=== PATIENT | male | born 1940 | race Caucasian/White ===

== ENCOUNTER 2021-02-26 13:34 | Outpatient (CLI) | payer MEDICARE ==
[2021-02-26] MEDS ORDERED: PIOG30TA23 PO (14:41)
[2021-02-26] MEDS ORDERED: BENA5TAB3 PO (14:41)
[2021-02-26] MEDS ORDERED: LATA2.5D4 EACHEYE (14:41)
[2021-02-26] MEDS ORDERED: FLAX10004 PO (14:41)
[2021-02-26] MEDS ORDERED: DOCU-131 PO (14:41)
[2021-02-26] MEDS ORDERED: INSU100V13 SC (14:41)
[2021-02-26] MEDS ORDERED: DULA1.5P INJ (14:41)
[2021-02-26] MEDS ORDERED: ASPI81TA45 PO (14:41)
[2021-02-26] MEDS ORDERED: MULT-717 PO (14:41)
[2021-02-26] MEDS ORDERED: VIT1CAPS42 PO (14:41)
[2021-02-26] MEDS ORDERED: ROSU20TA2 PO (14:41)
[2021-02-26] MEDS ORDERED: CHOL10003 PO (14:41)
[2021-02-26] MEDS ORDERED: REPA0.5T6 PO (14:41)
[2021-02-26] MEDS ORDERED: OMEG1CAP23 PO (14:41)
[2021-02-26] MEDS ORDERED: DORZ10DR21 EACHEYE (14:41)
[2021-02-26] MEDS ORDERED: BENF150C PO (14:41)
[2021-02-26] MEDS ORDERED: VITA1TAB19 PO (14:41)
[2021-02-26 14:51] LABS: BASOPHILS % (AUTO) 1 % (0-1); EOSINOPHILS % (AUTO) 5 % (1-7); LYMPHOCYTES % (AUTO) 20 % (22-44); MEAN CORPUSCULAR HEMOGLOBIN 32.2 pg (27.5-34.5); MEAN CORPUSCULAR HGB CONC 33.5 g/dL (33.2-36.2); MEAN PLATELET VOLUME 10.4 fL (7.4-10.4); MONOCYTES % (AUTO) 11 % (2-9); NEUTROPHILS % (AUTO) 63 % (42-75); PLATELET COUNT 168 x10^3/uL (130-400); RED BLOOD COUNT 4.33 x10^6/uL (4.38-5.82); RED CELL DISTRIBUTION WIDTH 14.3 % (9.4-14.8)
[2021-02-26 15:03] LABS: ALANINE AMINOTRANSFERASE 44 U/L (12-78); ALBUMIN 3.3 g/dL (3.4-5.0); ANION GAP 5 mmol/L (5-15); CHLORIDE 107 mmol/L (98-107); CREATININE 1.28 mg/dL (0.7-1.3)
[2021-02-26 15:05] LABS: ALKALINE PHOSPHATASE 73 U/L (45-117); BILIRUBIN,TOTAL 0.6 mg/dL (0.2-1.0)
== END 2021-02-26 23:59 | disposition home or self-care (01) ==
LOC: STAR 13:34
PROVIDERS: ATTEND Surgery
DX: Z01.818 Encounter for other preprocedural examination (principal); Z20.822 Contact with and (suspected) exposure to COVID-19; I44.0 Atrioventricular block, first degree; I49.3 Ventricular premature depolarization; I44.4 Left anterior fascicular block
CPT/HCPCS: 71046; 80053; 85025; 87635; 93005

== ENCOUNTER 2021-03-03 06:59 | Inpatient (IN) | payer MEDICARE ==
[~2021-03-03] VITALS: Ht 175.3 cm; Wt 105.0 kg
[~2021-03-03 06:59] MED LIST: ASPI81TA45 PO; BENA5TAB3 PO; BENF150C PO; CHOL10003 PO; DOCU-131 PO; DORZ10DR21 EACHEYE; DULA1.5P INJ; FLAX10004 PO; INSU100V13 SC; LATA2.5D4 EACHEYE; MULT-717 PO; OMEG1CAP23 PO; PIOG30TA23 PO; REPA0.5T6 PO; ROSU20TA2 PO; VIT1CAPS42 PO; VITA1TAB19 PO
[2021-03-03] MEDS ORDERED: THROMBIN 20,000 UNIT VIAL TP ONE (07:02)
[2021-03-03] MEDS ORDERED: HEPARIN 1,000 UNITS/ML, 10ML ONE (07:02)
[2021-03-03] MEDS ORDERED: PROTAMINE SULFATE 10 MG/ML, 5ML ONE (07:02)
[2021-03-03] MEDS ORDERED: CHLORHEXIDINE 15 ML UDC ONE (07:41)
[2021-03-03] MEDS ORDERED: CHLORHEXIDINE 15 ML UDC PO ONE (08:00)
[2021-03-03] MEDS ORDERED: SODIUM CHLORIDE 0.9% 1,000 ML IV SCH (08:00)
[2021-03-03] MEDS ORDERED: FENTANYL PF 250 MCG/5ML ONE (08:38)
[2021-03-03] MEDS ORDERED: HEPARIN 1,000 UNITS/ML, 10ML IV ONE (09:07)
[2021-03-03] MEDS ORDERED: EPHEDRINE 50 MG/ML, 1ML IVPush PRN (09:30)
[2021-03-03] MEDS ORDERED: ACETAMINOPHEN 325 MG TABLET PO PRN (09:30)
[2021-03-03] MEDS ORDERED: EPHEDRINE 50 MG/ML, 1ML IM PRN (09:30)
[2021-03-03] MEDS ORDERED: morphine SULFATE 10 MG/ML, 1ML IVPush PRN (09:30)
[2021-03-03] MEDS ORDERED: ONDANSETRON 2MG/ML, 2ML IVPush PRN ×2 (09:30→12:30)
[2021-03-03] MEDS ORDERED: OXYcodone 5 MG/5 ML ORAL.SOL UDC PO PRN (09:30)
[2021-03-03] MEDS ORDERED: DIPHENHYDRAMINE 50 MG/ML, 1ML IVPush PRN (09:30)
[2021-03-03] MEDS ORDERED: LABETALOL 5MG/ML, 20ML IV PRN (09:30)
[2021-03-03] MEDS ORDERED: DIAZEPAM 5 MG/ML, 2ML IVPush PRN (09:30)
[2021-03-03] MEDS ORDERED: PROMETHAZINE 25 MG/ML, 1ML IVPush PRN (09:30)
[2021-03-03] MEDS ORDERED: FENTANYL PF 100 MCG/2ML IV PRN (09:30)
[2021-03-03] MEDS ORDERED: ONDANSETRON 2MG/ML, 2ML ONE (10:21)
[2021-03-03] MEDS ORDERED: CEFAZOLIN 1,000 MG ONE ×2 (10:21→10:22)
[2021-03-03] MEDS ORDERED: PROPOFOL 10 MG/ML, 20ML ONE (10:21)
[2021-03-03] MEDS ORDERED: ROCURONIUM 10MG/ML,5ML ONE (10:21)
[2021-03-03] MEDS ORDERED: PROPOFOL 50 ML ONE (10:35)
[2021-03-03] MEDS ORDERED: ACETAMINOPHEN 650 MG/20.3 ML UDC PO PRN (12:30)
[2021-03-03] MEDS ORDERED: Dulaglutide (Trulicity) 1.5 MG) HOMEINJ SCH (12:30)
[2021-03-03] MEDS: INSULIN LISPRO 100 UNITS/ML, PEN SQ-INSULIN SCH ×3 (12:30→20:54)
[2021-03-03] MEDS ORDERED: OXYcodone 5 MG/5 ML ORAL.SOL UDC ONE (13:36)
[2021-03-03] MEDS ORDERED: ACETAMINOPHEN 650 MG/20.3 ML UDC ONE (13:36)
[2021-03-03] MEDS ORDERED: MEPERIDINE/PF 25MG/ML,1ML ONE (13:36)
[2021-03-03] MEDS ORDERED: EPHEDRINE 50 MG/ML, 1ML ONE (14:00)
[2021-03-03] MEDS: REPAGLINIDE 0.5 MG TABLET PO SCH (16:00)
[2021-03-03] MEDS: CEFAZOLIN PMX 2GM/50ML 50 ML IVPB SCH (18:01)
[2021-03-03 20:15] VITALS: BP 130/68
[2021-03-03] MEDS: ATORVASTATIN 80 MG TABLET PO SCH ×2 (20:42→20:47)
[2021-03-03] MEDS: LATANOPROST OPHTH 0.005%, 2.5ML EACHEYE SCH (20:42)
[2021-03-03] MEDS: CHOLECALCIFEROL 1,000 UNIT TABLET PO SCH (20:42)
[2021-03-03] MEDS: OMEGA-3/FISH OIL CAPSULE PO SCH (20:42)
[2021-03-03] MEDS: TIMOLOL MALEAT EACHEYE SCH (20:43)
[2021-03-03] MEDS: DORZOLAMIDE HCL EACHEYE SCH (20:43)
[2021-03-03] MEDS ORDERED: TEMPLATE NON-FORMULARY MED. (Flaxseed Oil 1,000 MG) PO SCH (21:00)
[2021-03-03] MEDS ORDERED: BENFOTIAMINE 150 MG PO SCH (21:00)
[2021-03-03] MEDS: LACTATED RINGERS 1,000 ML IV SCH (23:00)
[2021-03-04 00:25] VITALS: BP 146/72
[2021-03-04] MEDS: CEFAZOLIN PMX 2GM/50ML 50 ML IVPB SCH (01:34)
[2021-03-04 03:23] VITALS: BP_SYST 130; BP_SYST 168; BP_DIAS 70; BP_DIAS 72
[2021-03-04 06:01] LABS: CREATININE 1.15 mg/dL (0.7-1.3)
[2021-03-04] MEDS: ENOXAPARIN 40 MG/0.4 ML SQ SCH (06:21)
[2021-03-04] MEDS: PIOGLITAZONE 15 MG TABLET PO SCH (08:28)
[2021-03-04] MEDS: MULTIVITAMINS/MINERALS TABLET PO SCH (08:29)
[2021-03-04] MEDS: ASPIRIN 81 MG TABLET EC PO SCH (08:29)
[2021-03-04] MEDS: CHOLECALCIFEROL 1,000 UNIT TABLET PO SCH ×2 (08:29→20:57)
[2021-03-04] MEDS: MULTIVITS,STRESS FORMULA 1 TABLET PO SCH (08:29)
[2021-03-04] MEDS: OMEGA-3/FISH OIL CAPSULE PO SCH ×2 (08:29→20:57)
[2021-03-04] MEDS: BENAZEPRIL 5 MG TABLET PO SCH (08:30)
[2021-03-04] MEDS: CLOPIDOGREL 75 MG TABLET PO SCH (08:30)
[2021-03-04] MEDS: DOCUSATE 100 MG CAPSULE PO SCH (08:32)
[2021-03-04] MEDS: INSULIN LISPRO 100 UNITS/ML, PEN SQ-INSULIN SCH ×4 (08:34→21:00)
[2021-03-04] MEDS: REPAGLINIDE 0.5 MG TABLET PO SCH ×3 (08:35→16:57)
[2021-03-04] MEDS: TIMOLOL MALEAT EACHEYE SCH ×2 (08:37→21:00)
[2021-03-04] MEDS: DORZOLAMIDE HCL EACHEYE SCH ×2 (08:37→21:00)
[2021-03-04] MEDS ORDERED: INSULIN GLARGINE 100 UNITS/ML, PEN SQ-INSULIN SCH ×2 (09:00→21:00)
[2021-03-04] MEDS: LACTATED RINGERS 1,000 ML IV SCH ×2 (09:00→19:00)
[2021-03-04 10:39] LABS: ALBUMIN 3.1 g/dL (3.4-5.0); ANION GAP 10 mmol/L (5-15); CALCIUM 8.7 mg/dL (8.5-10.1); CHLORIDE 113 mmol/L (98-107)
[2021-03-04 10:41] LABS: CREATININE 1.17 mg/dL (0.7-1.3)
[2021-03-04 10:45] VITALS: BP 130/58
[2021-03-04 11:04] LABS: BASOPHILS % (AUTO) 1 % (0-1); EOSINOPHILS % (AUTO) 2 % (1-7); LYMPHOCYTES % (AUTO) 12 % (22-44); MEAN CORPUSCULAR HEMOGLOBIN 32.4 pg (27.5-34.5); MEAN CORPUSCULAR HGB CONC 34.1 g/dL (33.2-36.2); MEAN PLATELET VOLUME 10.9 fL (7.4-10.4); MONOCYTES % (AUTO) 16 % (2-9); NEUTROPHILS % (AUTO) 71 % (42-75); PLATELET COUNT 156 x10^3/uL (130-400); RED BLOOD COUNT 3.78 x10^6/uL (4.38-5.82); RED CELL DISTRIBUTION WIDTH 14.1 % (9.4-14.8)
[2021-03-04 12:28] VITALS: BP 127/55
[2021-03-04 19:21] VITALS: BP 150/67
[2021-03-04] MEDS: ATORVASTATIN 80 MG TABLET PO SCH (20:57)
[2021-03-04] MEDS: LATANOPROST OPHTH 0.005%, 2.5ML EACHEYE SCH (21:03)
[2021-03-05 01:35] VITALS: BP 149/69
[2021-03-05] MEDS: LACTATED RINGERS 1,000 ML IV SCH (05:00)
[2021-03-05] MEDS: ENOXAPARIN 40 MG/0.4 ML SQ SCH (05:18)
[2021-03-05] MEDS: REPAGLINIDE 0.5 MG TABLET PO SCH ×2 (07:30→11:47)
[2021-03-05 07:56] VITALS: BP 130/59
[2021-03-05] MEDS: PIOGLITAZONE 15 MG TABLET PO SCH (08:15)
[2021-03-05] MEDS: DOCUSATE 100 MG CAPSULE PO SCH (08:15)
[2021-03-05] MEDS: MULTIVITAMINS/MINERALS TABLET PO SCH (08:15)
[2021-03-05] MEDS: CLOPIDOGREL 75 MG TABLET PO SCH (08:15)
[2021-03-05] MEDS: MULTIVITS,STRESS FORMULA 1 TABLET PO SCH (08:16)
[2021-03-05] MEDS: CHOLECALCIFEROL 1,000 UNIT TABLET PO SCH (08:16)
[2021-03-05] MEDS: OMEGA-3/FISH OIL CAPSULE PO SCH (08:16)
[2021-03-05] MEDS: BENAZEPRIL 5 MG TABLET PO SCH (08:16)
[2021-03-05] MEDS: ASPIRIN 81 MG TABLET EC PO SCH (08:16)
[2021-03-05] MEDS: INSULIN LISPRO 100 UNITS/ML, PEN SQ-INSULIN SCH ×2 (08:17→11:00)
[2021-03-05] MEDS: TIMOLOL MALEAT EACHEYE SCH (08:17)
[2021-03-05] MEDS: DORZOLAMIDE HCL EACHEYE SCH (08:17)
[2021-03-05] MEDS ORDERED: CLOP75TA PO (10:42)
[2021-03-05] MEDS ORDERED: HYDR-2214 PO (10:42)
== END 2021-03-05 16:30 | disposition home or self-care (01) | DRG 272 ==
LOC: ORIP 06:59 → EDSTATUS 09:00 → 4NE 15:44
PROVIDERS: ADMIT Surgery; ATTEND Surgery
PROC: 04CL3ZZ Extirpation of Matter from Left Femoral Artery, Percutaneous Approach (ICD-10-PCS; 2021-03-03)
PROC: 04UL3KZ Supplement Left Femoral Artery with Nonautologous Tissue Substitute, Percutaneous Approach (ICD-10-PCS; 2021-03-03)
PROC: 04CK3ZZ Extirpation of Matter from Right Femoral Artery, Percutaneous Approach (ICD-10-PCS; principal; 2021-03-03 09:00)
DX: I70.211 Atherosclerosis of native arteries of extremities with intermittent claudication, right leg (principal); I70.212 Atherosclerosis of native arteries of extremities with intermittent claudication, left leg; N43.3 Hydrocele, unspecified
CPT/HCPCS: 36415; 80048; 82040; 82565; 82962; 85025; 86850; 86900; G0378; J0690; J1644; J1650; J2405; J2704; J2720; J3010; C1768; J1815; J7030